=== PATIENT | female | born 1945 | race Hispanic/Latino ===

== ENCOUNTER 2016-11-28 22:35 | Observation (INO) | payer MEDICARE, OTHER ==
--- NOTE | 2016-11-28 22:56 | ED PDOC ---
Arrival/HPI - General Time Seen by Provider: 11/28/16 22:40 Historian: Patient - History of Present Illness Narrative History of Present Illness (Text): 11/28/16 22:58 Lucia Hernandez is a 71 year old female, with a history of COPD and hypertension, presents to the emergency department complaining of chest tightness associated with shortness of breath since earlier today. Patient reports that she was recently started on Lasix by PMD, Dr. Fry. She is also scheduled for an ultrasound of abdomen and lower extremity later tomorrow. States she used breathing treatments at home for minimal relief. Denies fever, chills, headache, dizziness, nausea, vomiting, diarrhea, urinary symptoms, or any other complaints at this time. PMD: Dr. 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 - Anesthesia Hx Anesthesia: Yes Hx Anesthesia Reactions: No Hx Malignant Hyperthermia: No Family/Social History - Physician Review Nursing Documentation Reviewed: Yes Family/Social History: No Known Family HX Smoking Status: Heavy Smoker > 10 Cigarettes Daily Hx Alcohol Use: No Hx Substance Use: No Allergies/Home Meds Allergies/Adverse Reactions: Allergies clarithromycin [From Biaxin] Allergy (Verified 11/28/16 23:10) ANAPHYLAXIS levofloxacin [From Levaquin] Allergy (Verified 11/28/16 23:10) ANAPHYLAXIS moxifloxacin HCl [From Avelox] Allergy (Verified 11/28/16 23:10) ANAPHYLAXIS Home Medications: Home Meds Medication Instructions Recorded Confirmed Albuterol/Ipratropium [Combivent 1 puff IH QID 08/08/16 11/28/16 Respimat] Citalopram [celeXA] 10 mg PO DAILY 08/08/16 11/28/16 Oxycodone HCl [Roxicodone] 15 mg PO 5XD 08/08/16 11/28/16 amLODIPine [Norvasc] 5 mg PO DAILY 08/08/16 11/28/16 Furosemide [Lasix] 20 mg PO DAILY 11/28/16 11/28/16 Review of Systems - Physician Review All systems were reviewed & negative as marked: Yes - Review of Systems Constitutional: Normal. absent: Fatigue, Fevers Respiratory: SOB. absent: Cough, Sputum Cardiovascular: Chest Pain (tightness ) Gastrointestinal: Normal. absent: Abdominal Pain, Diarrhea, Nausea, Vomiting Neurological: Normal. absent: Headache, Dizziness Psychiatric: Normal Physical Exam Vital Signs Reviewed: Yes Vital Signs Temp Pulse Resp BP Pulse Ox 11/29/16 04:27 80 18 144/79 97 11/29/16 03:12 18 11/29/16 03:00 76 18 140/74 95 11/29/16 01:00 98.5 F 80 16 138/74 95 11/28/16 23:12 97.8 F 92 H 16 142/79 97 Temperature: Afebrile Blood Pressure: Normal Pulse: Regular Respiratory Rate: Normal Appearance: Positive for: Well-Appearing, Non-Toxic, Comfortable Pain Distress: None Mental Status: Positive for: Alert and Oriented X 3 - Systems Exam Head: Present: Atraumatic, Normocephalic Pupils: Present: PERRL Extroacular Muscles: Present: EOMI Conjunctiva: Present: Normal Mouth: Present: Moist Mucous Membranes Respiratory/Chest: Present: Decreased Breath Sounds. No: Respiratory Distress, Accessory Muscle Use Cardiovascular: Present: Regular Rate and Rhythm, Normal S1, S2. No: Murmurs Abdomen: Present: Normal Bowel Sounds. No: Tenderness, Distention, Peritoneal Signs Back: Present: Normal Inspection. No: CVA Tenderness Upper Extremity: Present: Normal Inspection. No: Cyanosis, Edema Lower Extremity: Present: Normal Inspection. No: Edema Neurological: Present: GCS=15, CN II-XII Intact, Speech Normal Skin: Present: Warm, Dry, Normal Color. No: Rashes Psychiatric: Present: Alert, Oriented x 3, Normal Insight, Normal Concentration Medical Decision Making ED Course and Treatment: 11/28/16 23:05 Impression: A 71 year old female who presents to the emergency department complaining of shortness of breath and chest tightness since earlier today. Plan: -- EKG -- Chest X-ray -- oxycodone -- blood culture -- Duplex LE -- US abdomen -- Urinalysis -- Reassess and disposition Progress Notes: 11/29/16 01:49 EKG reviewed by me: NSR @ 100 bpm. Minimal voltage criteria for LVH. ST abnormality, possible digitalis effect. 11/29/16 01:51 Spoke with [employer] who informs a negative Doppler study. US abdomen results reviewed: Impression: No acute findings. Case discussed with Dr. Lockhart, who is aware and agrees with the plan to admit patient to telemetry. Accepts patient under her service. - Lab Interpretations Microbiology Results: Microbiology Results 11/28/16 23:40 Blood-Venous Blood Culture - Preliminary NO GROWTH AFTER 4 DAYS 11/28/16 23:15 Blood-Venous Blood Culture - Preliminary NO GROWTH AFTER 4 DAYS Lab Results: 11/28/16 23:40 11/28/16 23:40 Lab Results 11/28/16 23:40: WBC 6.6, RBC 4.23, Hgb 13.3, Hct 41.4, MCV 97.9, MCH 31.4, MCHC 32.1, RDW 15.1 H, Plt Count 279, MPV 8.9, Gran % 76.3 H, Lymph % (Auto) 16.4 L, [place] % (Auto) 6.7 H, Eos % (Auto) 0.3 L, Baso % (Auto) 0.3, Gran # 5.04, Lymph # 1.1 L, [place] # 0.4, Eos # 0.0, Baso # 0.02, PT 10.7, INR 0.99, pO2 41, VBG pH 7.33, VBG pCO2 63.0 H, VBG HCO3 33.2 H, VBG Total CO2 35.1 H, VBG O2 Sat (Calc) 76.4 H, VBG Base Excess 5.3 H, VBG Potassium 3.9, Glucose 76, Lactate 1.2, FiO2 21.0, Sodium 141.0, Potassium 3.9, Chloride 104.0, Carbon Dioxide 31, Anion Gap 12, BUN 15, Creatinine 0.5, Est GFR ( Amer) > 60, Est GFR (Non-Af Amer) > 60, Random Glucose 78, Calcium 9.2, Total Bilirubin 0.6, AST 31, ALT 17, Alkaline Phosphatase 92, Lactate Dehydrogenase 516, Total Creatine Kinase 61, Troponin I < 0.01, NT-Pro-B Natriuret Pep 150, Total Protein 7.2, Albumin 3.9, Globulin 3.3, Albumin/Globulin Ratio 1.2, Venous Blood Potassium 3.9 11/28/16 22:47: Urine Color Yellow, Urine Appearance Clear, Urine pH 8.0, Ur Specific [place] 1.015, Urine Protein Negative, Urine Glucose (UA) Negative, Urine Ketones Negative, Urine Blood Negative, Urine Nitrate Negative, Urine Bilirubin Negative, Urine Urobilinogen 0.2, Ur Leukocyte Esterase Negative I have reviewed the lab results: Yes - RAD Interpretation Narrative RAD Interpretations (Text): EXAM: US Abdomen Complete. FINDINGS: Liver: Normal echogenicity. No mass. No intrahepatic bile duct dilatation. Gallbladder: No gallstones. No wall thickening. No pericholecystic fluid. No sonographic Viramontes's sign. Common bile duct: No dilatation. No stones. Pancreas: Unremarkable as visualized. Kidneys: Normal echogenicity. No hydronephrosis. Spleen: No splenomegaly. Aorta: Not visualized. Inferior vena cava: Unremarkable. Free fluid: No significant free fluid. IMPRESSION: 1. No acute findings. 2. Non-acute findings are described above. Radiology Orders: 11/28/16 23:24 ABDOMEN COMPLETE [US] Stat 11/28/16 23:25 DUPLEX LOWER EXTRM VEIN BILAT [US] Stat 11/28/16 23:27 CHEST PORTABLE [RAD] Stat Cutlet Maker Pork: Radiologist - EKG Interpretation Interpreted by ED Physician: Yes Type: 12 lead EKG - Medication Orders Current Medication Orders: Discontinued Medications Acetaminophen (Tylenol 325mg Tab) 650 mg PO Q4H PRN PRN Reason: Fever >100.5 F Albuterol/Ipratropium (Duoneb 3 Mg/0.5 Mg (3 Ml) Ud) 3 ml IH Q4H PRN PRN Reason: Wheezing Stop: 11/29/16 07:34 Albuterol/Ipratropium (Duoneb 3 Mg/0.5 Mg (3 Ml) Ud) 3 ml IH [id number] [facility] Last Admin: 11/30/16 08:13 Dose: 3 ML Amlodipine Besylate (Norvasc) 5 mg PO DAILY [facility] Last Admin: 11/29/16 10:15 Dose: 5 MG MAR Pulse and Blood Pressure Document 11/29/16 10:15 RDS (Rec: 11/29/16 10:15 RDS [id number]) Pulse Pulse Rate (60-90) 84 Blood Pressure Blood Pressure (100/60-150/90) 138/75 Amlodipine Besylate (Norvasc) 10 mg PO DAILY [facility] Last Admin: 12/01/16 10:47 Dose: 10 MG MAR Pulse and Blood Pressure Document 12/01/16 10:47 [facility] (Rec: 12/01/16 10:48 [id number] Blood Pressure Blood Pressure (100/60-150/90) 161/99 Amlodipine Besylate (Norvasc) 5 mg PO ONCE ONE Stop: 11/30/16 12:48 Amlodipine Besylate (Norvasc) 5 mg PO ONCE ONE Stop: 11/29/16 12:53 Last Admin: 11/29/16 13:02 Dose: 5 MG MAR Pulse and Blood Pressure Document 11/29/16 13:02 SG (Rec: 11/29/16 13:03 SG [id number]) Pulse Pulse Rate (60-90) 91 Blood Pressure Blood Pressure (100/60-150/90) 155/90 Aspirin (Aspirin Chewable) 81 mg PO DAILY [facility] Last Admin: 12/01/16 10:47 Dose: 81 MG Citalopram Hydrobromide (Celexa) 10 mg PO DAILY [facility] Last Admin: 12/01/16 10:47 Dose: 10 MG Clonazepam (Klonopin) 0.5 mg PO BID PRN; Protocol PRN Reason: Anxiety Fentanyl (Fentanyl) Confirm Administered Dose 100 mcg .ROUTE .STK-MED ONE Stop: 11/30/16 10:54 Last Admin: 11/30/16 13:15 Dose: Furosemide (Lasix) 40 mg IVP DAILY [facility] Last Admin: 12/01/16 10:48 Dose: 40 MG MAR Blood Pressure Document 12/01/16 10:48 [facility] (Rec: 12/01/16 10:48 [id number] Blood Pressure Blood Pressure (100/60-150/90) 161/99 IVP Administration Document 12/01/16 10:48 [facility] (Rec: 12/01/16 10:48 [id number] Charges for Administration # of IVP Administrations 1 Heparin Sodium (Porcine) (Heparin) Confirm Administered Dose 10,000 units .ROUTE .STK-MED ONE Stop: 11/30/16 10:54 Last Admin: 11/30/16 13:15 Dose: Heparin Sodium (Porcine) (Heparin 1000 Units/500 Ml Ns) Confirm Administered Dose 1,500 mls @ IV .STK-MED ONE Stop: 11/30/16 10:55 Last Admin: 11/30/16 13:16 Dose: Iodixanol (Visipaque 320 Mg/Ml 100 Ml) Confirm Administered Dose 100 ml IV .STK- MED ONE Stop: 11/30/16 10:55 Last Admin: 11/30/16 13:17 Dose: Iodixanol (Visipaque 320 Mg/Ml 200 Ml) Confirm Administered Dose 200 ml IV .STK- MED ONE Stop: 11/30/16 10:55 Last Admin: 11/30/16 13:17 Dose: Iohexol (Omnipaque 350mg/Ml 50 Ml) Confirm Administered Dose 50 ml .ROUTE .STK- MED ONE Stop: 11/30/16 10:55 Last Admin: 11/30/16 13:16 Dose: Levalbuterol HCl (Xopenex) 0.63 mg IH [id number] PRN PRN Reason: Shortness of Breath Last Admin: 12/01/16 11:23 Dose: 0.63 MG Lidocaine HCl (Lidocaine 2% 20ml Vial) Confirm Administered Dose 20 ml .ROUTE .STK-MED ONE Stop: 11/30/16 10:54 Last Admin: 11/30/16 13:16 Dose: Methylprednisolone (Solu-Medrol) 40 mg IV Q12 JAMES Last Admin: 11/30/16 09:48 Dose: 40 MG eMAR Start Stop Document 11/30/16 09:48 [facility] (Rec: 11/30/16 09:48 [facility] [id number]) Intravenous Solution Start Date 11/30/16 Start Time 09:48 End Date 11/30/16 End time 09:48 Total Infusion Time 0 Methylprednisolone (Solu-Medrol) 20 mg IV Q12 JAMES Last Admin: 12/01/16 10:49 Dose: 20 MG eMAR Start Stop Document 12/01/16 10:49 DM (Rec: 12/01/16 10:49 [facility] [id number]) Intravenous Solution Start Date 12/01/16 Start Time 10:49 End Date 12/01/16 End time 10:49 Total Infusion Time 0 Midazolam HCl (Versed Inj) Confirm Administered Dose 2 mg .ROUTE .STK-MED ONE Stop: 11/30/16 10:54 Last Admin: 11/30/16 13:17 Dose: Oxycodone HCl (Oxycodone Immediate Release Tab) 15 mg PO STAT STA Stop: 11/29/16 01:51 Last Admin: 11/29/16 02:08 Dose: 15 MG Oxycodone HCl (Oxycodone Immediate Release Tab) 15 mg PO Q6H PRN PRN Reason: Pain, moderate (4-7) Oxycodone HCl (Oxycodone Immediate Release Tab) 15 mg PO Q6H PRN PRN Reason: Pain, moderate (4-7) Last Admin: 12/01/16 12:15 Dose: 15 MG Oxycodone/Acetaminophen (Percocet 5/325 Mg Tab) 1 tab PO Q6H PRN PRN Reason: Pain, moderate (4-7) Stop: 12/02/16 08:25 Last Admin: 11/29/16 08:50 Dose: 1 TAB MAR Pain Assessment Document 11/29/16 08:50 RDS (Rec: 11/29/16 08:52 RDS [facility] [id number] Pain Reassessment Is this a pain reassessment? No Sleep Is patient sleeping during reassessment? No Presence of Pain Presence of Pain Yes Pain Scale Used Pain Scale Used Numeric Location Pain Location Body Site Generalized Description Description Chronic Intensity of Pain at present 10 Acceptable Level of Pain 5 Pain Behavior Facial Grimacing Aggravating Factors Changing Position Exercise/Activity Alleviating Factors/Management Medication Techniques Alleviating Factors Medication Verapamil HCl (Verapamil Inj) Confirm Administered Dose 5 mg IVP .STK-MED ONE Stop: 11/30/16 10:54 Last Admin: 11/30/16 13:16 Dose: - Scribe Statement The provider has reviewed the documentation as recorded by the Salas Ambrocio Provider Attestation: All medical record entries made by the Salas were at my direction and personally dictated by me. I have reviewed the chart and agree that the record accurately reflects my personal performance of the history, physical exam, medical decision making, and the department course for this patient. I have also personally directed, reviewed, and agree with the discharge instructions and disposition. Disposition/Present on Arrival - Present on Arrival Any Indicators Present on Arrival: No History of DVT/PE: No History of Uncontrolled Diabetes: No Urinary Catheter: No History Surgical Site Infection Following: Obstetrical/Gynecological Surgery - Disposition Have Diagnosis and Disposition been Completed?: Yes Diagnosis: Chest pain, Chronic obstructive pulmonary disease Disposition: HOSPITALIZED Disposition Time: 02:00 Condition: GOOD
[2016-11-29 00:08] LABS: ADD MANUAL DIFF? NO
[2016-11-29 00:18] LABS: URINE BILIRUBIN NEGATIVE (NEGATIVE); URINE BLOOD NEGATIVE (NEGATIVE); URINE GLUCOSE (UA) NEGATIVE (NEGATIVE); URINE KETONE NEGATIVE (NEGATIVE); URINE LEUKOCYTE ESTERASE NEGATIVE Leu/uL (NEGATIVE); URINE PROTEIN NEGATIVE mg/dL (<30 mg/dL); URINE UROBILINOGEN 0.2 E.U./dL (<1 E.U./dL)
[2016-11-29 00:19] LABS: INR 0.99 (0.93-1.08)
[2016-11-29 00:20] LABS: VENOUS BLOOD GAS BASE EXCESS 5.3 mmol/L (0.0-2.0); VENOUS BLOOD PH 7.33 (7.32-7.43)
[2016-11-29 00:23] LABS: ALB/GLOB RATIO 1.2 (1.1-1.8); ALKALINE PHOSPHATASE 92 U/L (38-133); ALT/SGPT 17 U/L (7-56); AST/SGOT 31 U/L (15-39); BILIRUBIN,TOTAL 0.6 mg/dL (0.2-1.3); BLOOD UREA NITROGEN 15 mg/dL (7-21); CALCIUM 9.2 mg/dL (8.4-10.5); CARBON DIOXIDE 31 mmol/L (21-33); CHLORIDE 100 mmol/L (98-107); GFR AFRICAN-AMERICAN > 60; GLUCOSE,RANDOM 78 mg/dL (70-110); POTASSIUM 3.9 mmol/L (3.6-5.0); SODIUM 139 mmol/L (132-148); TOTAL PROTEIN 7.2 g/dL (5.8-8.3)
[2016-11-29 00:23] LABS: URINE APPEARANCE CLEAR (CLEAR); URINE COLOR YELLOW (YELLOW)
[2016-11-29 00:34] LABS: BASO # 0.02 K/mm3 (0.0-2.0); BASO % 0.3 % (0.0-3.0); EOS % 0.3 % (1.5-5.0); GRAN # 5.04 (1.4-6.5); GRAN % 76.3 % (50.0-68.0); HEMATOCRIT 41.4 % (36.0-48.0); LYMPH # 1.1 (1.2-3.4); LYMPH % 16.4 % (22.0-35.0); MEAN CELL VOLUME 97.9 fL (80.0-105.0); MEAN CORPUSCULAR HEMOGLOBIN 31.4 pg (25.0-35.0); MEAN CORPUSCULAR HGB CONC 32.1 g/dl (31.0-37.0); MEAN PLATELET VOLUME 8.9 fl (7.0-11.0); MONO # 0.4 (0.1-0.6); MONO % 6.7 % (1.0-6.0); PLATELET COUNT 279 10^3/uL (120.0-450.0); RED CELL DISTRIBUTION WIDTH 15.1 % (11.5-14.5); WHITE BLOOD COUNT 6.6 10^3/ul (4.5-11.0)
[2016-11-29 00:41] LABS: TROPONIN I < 0.01 ng/mL
--- NOTE | 2016-11-29 01:01 | US ---
EXAM: US Abdomen Complete. CLINICAL HISTORY: 71 years old, female; Pain; Abdominal pain; Generalized; Additional info: Abd pain TECHNIQUE: Real-time ultrasound of the abdomen (complete) with image documentation. COMPARISON: No relevant prior studies available. FINDINGS: Liver: Normal echogenicity. No mass. No intrahepatic bile duct dilatation. Gallbladder: No gallstones. No wall thickening. No pericholecystic fluid. No sonographic Viramontes's sign. Common bile duct: No dilatation. No stones. Pancreas: Unremarkable as visualized. Kidneys: Normal echogenicity. No hydronephrosis. Spleen: No splenomegaly. Aorta: Not visualized. Inferior vena cava: Unremarkable. Free fluid: No significant free fluid. IMPRESSION: 1.No acute findings. 2.Non-acute findings are described above.
[2016-11-29] MEDS ORDERED: oxyCODONE 15 mg Immediate Release Tab PO STA (01:50)
[2016-11-29] MEDS ORDERED: Albuterol-Ipratrop 3 mg / 0.5 (3 ml) UD IH PRN (03:33)
[2016-11-29 05:53] VITALS: BMI 21.2
[2016-11-29] MEDS ORDERED: Oxycodone/Acetaminophen 5/325 mg Tab PO PRN (08:24)
--- NOTE | 2016-11-29 08:39 | RAD ---
HISTORY: cp COMPARISON: 08/08/2016 FINDINGS: LUNGS: No active pulmonary disease. Hyperlucency that upper lung zone possible emphysematous changes similar-appearing. PLEURA: No significant pleural effusion identified, no pneumothorax apparent. CARDIOVASCULAR: Normal. OSSEOUS STRUCTURES: Reversed S-shaped thoracolumbar scoliosis VISUALIZED UPPER ABDOMEN: Normal. OTHER FINDINGS: EKG leads in place IMPRESSION: No active disease.
[2016-11-29] MEDS ORDERED: oxyCODONE 15 mg Immediate Release Tab PO PRN (09:02)
--- NOTE | 2016-11-29 09:03 | CARD ---
APPROVED REPORT EKG Measurement Heart [id number] <Conclusion> Normal sinus rhythm Minimal voltage criteria for LVH, may be normal variant ST abnormality, possible digitalis effect Abnormal ECG
[2016-11-29] MEDS ORDERED: oxyCODONE 15 mg Immediate Release Tab PO SCH (12:15)
[2016-11-29] MEDS: MethylPREDNISolone 40 mg Vial IV SCH ×2 (12:53→21:26)
--- NOTE | 2016-11-29 12:56 | HP ---
HISTORY OF PRESENT ILLNESS: The patient is a 71-year-old, states she was having some chest tightness and shortness of breath going on for the last 2 days, got worse last night, so she told her daughter who brought her to the Emergency Room. Denies any fever or chills. Cough was nonproductive. Compl ained of having chest pressure. No diaphoresis, no weakness, no numbness, no nausea or vomiting. PAST MEDICAL HISTORY: Significant for hypertension, COPD, lumbosacral radiculopathy. PAST SURGICAL HISTORY: Significant for hysterectomy and ear surgery that she had in the remote past. ALLERGIES: SHE IS ALLERGIC TO BIAXIN, LEVAQUIN, AVELOX. MEDICATIONS AT HOME: She is on oxycodone 30 mg 5 times a day, Celexa 10 mg daily, amlodipine 5 mg da ralph, she is on Combivent. SOCIAL HISTORY: She lives with her daughter who lives upstairs. She is a heavy smoker. She quit sm oking since her last admission in August. REVIEW OF SYSTEMS: She states her chest discomfort is better than yesterday, and she has less chest pressure and she seems to be breathing better. PHYSICAL EXAMINATION: GENERAL: She is awake and alert, communicative. VITAL SIGNS: She is afebrile, pulse 77, respirations 18, blood pressure 138/75. LUNGS: Bilateral fair airflow, no rhonchi or crackle. HEART: S1, S2 audible. No murmur. ABDOMEN: Soft, nontender, no rebound, no guarding. NEUROLOGIC: The patient is awake and alert, communicative. LABORATORY DATA: WBC 6.6, hemoglobin 13, hematocrit 41, platelets 279. PT 10.7, INR 0.99. Chemistr y: Sodium 139, potassium 3.9, chloride 100, CO2 31, BUN 15, creatinine 0.5, blood sugar of 78. LFTs are within normal limits. Two sets of cardiac enzymes are negative. Urinalysis is unremarkable. A bdominal ultrasound is negative. EKG shows nonspecific changes. ASSESSMENT: 1. Chronic obstructive pulmonary disease exacerbation. 2. Bronchospasm. 3. Chronic degenerative disk disease with chronic low back pain. 4. Depression. 5. Hypertension. PLAN: We will start her on small dose of steroids. Renew her usual medication including Celexa and oxycodone. We will continue her on nebulizer treatment, aspirin 81 daily. Out of bed to chair. Cody falk reevaluate patient in a.m. If she seems to be improving, make discharge plan soon. Sandra Lockhart MD cc: [phone] TT: 11/29/2016 12:55:28 opal
--- NOTE | 2016-11-29 13:55 | US ---
HISTORY: Leg pain and swelling. Evaluate for DVT PHYSICIAN(S): Rhys Noble MD. TECHNIQUE: Duplex sonography and color-flow Doppler with graded compression were used to evaluate the deep venous systems of both lower extremities. FINDINGS: The visualized deep venous systems of both lower extremities are sonographically normal and compressible. Normal wave forms and augmentation are seen. There is no sonographic evidence for deep venous thrombosis in the visualized segments of both lower extremities. IMPRESSION: No sonographic evidence for deep venous thrombosis in the visualized segments of both lower extremities.
[2016-11-29] MEDS: Albuterol-Ipratrop 3 mg / 0.5 (3 ml) UD IH SCH ×2 (14:03→21:00)
[2016-11-29] MEDS: oxyCODONE 15 mg Immediate Release Tab PO PRN ×2 (15:22→21:26)
[2016-11-30 00:19] VITALS: O2SAT 95
[2016-11-30] MEDS: Albuterol-Ipratrop 3 mg / 0.5 (3 ml) UD IH SCH ×2 (02:30→08:13)
[2016-11-30] MEDS: oxyCODONE 15 mg Immediate Release Tab PO PRN ×4 (03:45→23:19)
[2016-11-30] MEDS: MethylPREDNISolone 40 mg Vial IV SCH ×3 (09:48→21:23)
[2016-11-30] MEDS ORDERED: Lidocaine 2% Inj (20ml) ONE (10:53)
[2016-11-30] MEDS ORDERED: Midazolam 2 MG/2 ML VIAL ONE (10:53)
[2016-11-30] MEDS ORDERED: Iodixanol 320 MG/ML 200 ML BOTTLE IV ONE (10:54)
[2016-11-30] MEDS ORDERED: Iodixanol 320 MG/ML 100 ML BOTTLE IV ONE (10:54)
[2016-11-30] MEDS ORDERED: Heparin 0 ML IV ONE (10:54)
[2016-11-30] MEDS ORDERED: Iohexol 350mgl/ml 50 ML ONE (10:54)
[2016-11-30] MEDS ORDERED: Levalbuterol 0.63 MG/3 ML Inhal Soln UD IH PRN (11:28)
--- NOTE | 2016-11-30 12:31 | PN ---
DATE: 11/30/2016 SUBJECTIVE: The patient is a 71-year-old, seen and examined, sitting in chair, very nervous, shaking , has obvious significant tremor in both hands. She states she did not sleep last night. Has subjec tive feeling of shortness of breath. PHYSICAL EXAMINATION: GENERAL: She looks anxious. Mild shortness of breath. VITAL SIGNS: She is afebrile, pulse 86, respirations 20, blood pressure 127/72. LUNGS: Bilateral few expiratory rhonchi. HEART: S1, S2 audible. ABDOMEN: Soft, nontender, no rebound, no guarding. NEUROLOGIC: The patient is awake and alert and communicative. EXTREMITIES: Bilateral legs, no edema. LABORATORY EXAMINATION: There is no new lab available today. Her x-ray chest, no active disease. A bdominal sonogram is unremarkable. Bilateral leg Doppler is negative. ASSESSMENT: 1. Chronic obstructive pulmonary disease exacerbation. 2. Anxiety disorder. 3. Degenerative disk disease. 4. Hypertension. 5. Hyperlipidemia. PLAN: Will cut down her steroids, add small dose of anxiolytic, change her DuoNeb to Xopenex and adalberto lgesic as needed. We will reevaluate the patient in a.m. If she improves, will make discharge plan i n a.m. Sandra Lockhart MD cc: [phone] TT: 11/30/2016 12:30:49 Confirmation # [id number] Dictation # [id number] opal
[2016-11-30] MEDS ORDERED: MethylPREDNISolone 40 mg Vial IVP SCH (22:00)
[2016-12-01] MEDS: oxyCODONE 15 mg Immediate Release Tab PO PRN ×2 (05:25→12:15)
[2016-12-01 08:29] VITALS: PULSE 74; RESP 20; TEMP 98.4
[2016-12-01] MEDS: MethylPREDNISolone 40 mg Vial IV SCH (10:49)
[2016-12-01 10:51] VITALS: BP 161/99
--- NOTE | 2016-12-01 21:38 | DS ---
The patient is a 71-year-old, seen and examined, sitting in chair, comfortable. Mild shortness of br eath, but much better than before. PHYSICAL EXAMINATION: VITAL SIGNS: She is afebrile, pulse 74, respirations 20, blood pressure 123/71. LUNGS: Bilateral diffusely decreased breath sounds. HEART: S1, S2 audible. ABDOMEN: Soft, nontender, no rebound, no guarding. NEUROLOGIC: The patient is awake and alert, communicative, ambulatory. ASSESSMENT: 1. Status post chronic obstructive pulmonary disease exacerbation. 2. Asthmatic bronchitis, improved. 3. Anxiety disorder. 4. Degenerative disk disease, on chronic narcotics. 5. Hyperlipidemia. PLAN: The patient is being discharged home. She will resume her medications including Norvasc 5 mg daily, oxycodone 15 mg 5 times a day, Celexa 10 mg daily. She has nebulizer at home. Will resume th at, and will give her prednisone 20 mg for 3 days, then 10 mg for 4 days, and she will follow up with her PMD. Sandra Lockhart MD cc: [phone] TT: 12/01/2016 21:37:21 oh
== END 2016-12-01 16:18 | disposition home or self-care (01) ==
LOC: ED 22:35 → ERH 11-29 01:38 → 2RNO 11-29 05:11 → 5RSO 11-30 17:32
PROVIDERS: ADMIT Internal Medicine; ATTEND Internal Medicine
DX: J44.1 Chronic obstructive pulmonary disease with (acute) exacerbation (principal); J45.909 Unspecified asthma, uncomplicated; I10 Essential (primary) hypertension; M51.16 Intervertebral disc disorders with radiculopathy, lumbar region; E78.5 Hyperlipidemia, unspecified; F41.9 Anxiety disorder, unspecified; F32.9 Major depressive disorder, single episode, unspecified
CPT/HCPCS: 36415; 71010; 76700; 80053; 81003; 82550; 82803; 83615; 83880; 84484; 85025; 85610; 87040; 93005; 93970; 94640; 94760; 96374; 96375; 96376; 97116; 97161; 99285; G0378; G8978; G8979; G8980; J1940; J2920

== ENCOUNTER 2017-01-26 17:11 | Emergency (ER) | payer MEDICARE ==
[2017-01-26 17:38] VITALS: RESP 18; TEMP 97.8; O2SAT 96; BMI 21.9
[2017-01-26] MEDS ORDERED: Albuterol-Ipratrop 3 mg / 0.5 (3 ml) UD IH STA ×3 (17:42→17:43)
--- NOTE | 2017-01-26 17:44 | ED PDOC ---
Arrival/HPI - General Time Seen by Provider: 01/26/17 17:42 Historian: Patient - History of Present Illness Narrative History of Present Illness (Text): 01/26/17 17:42 71 year old female whose past medical history includes COPD presents to the emergency department with shortness of breath since yesterday, worsening today. Patient states this feels like her COPD, with last admission in November 2016. Denies cough, fever, runny nose, or other symptoms. 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 - Anesthesia Hx Anesthesia: Yes Hx Anesthesia Reactions: No Hx Malignant Hyperthermia: No Family/Social History - Physician Review Nursing Documentation Reviewed: Yes Family/Social History: Unknown Family HX Smoking Status: Heavy Smoker > 10 Cigarettes Daily Hx Alcohol Use: No Hx Substance Use: No Allergies/Home Meds Allergies/Adverse Reactions: Allergies clarithromycin [From Biaxin] Allergy (Verified 11/28/16 23:10) ANAPHYLAXIS levofloxacin [From Levaquin] Allergy (Verified 11/28/16 23:10) ANAPHYLAXIS moxifloxacin HCl [From Avelox] Allergy (Verified 11/28/16 23:10) ANAPHYLAXIS Home Medications: Home Meds Medication Instructions Recorded Confirmed Albuterol/Ipratropium [Combivent 1 puff IH QID 08/08/16 11/28/16 Respimat] Citalopram [celeXA] 10 mg PO DAILY 08/08/16 11/28/16 Oxycodone HCl [Roxicodone] 15 mg PO 5XD 08/08/16 11/28/16 amLODIPine [Norvasc] 5 mg PO DAILY 08/08/16 11/28/16 Furosemide [Lasix] 20 mg PO DAILY 11/28/16 11/28/16 Review of Systems - Physician Review All systems were reviewed & negative as marked: Yes - Review of Systems Constitutional: absent: Fevers ENT: absent: Rhinorrhea Respiratory: SOB. absent: Cough Physical Exam - Physical Exam Narrative Physical Exam (Text): Constitutional: No acute distress. Head: Normocephalic. Atraumatic. Eyes: PERRL. ENT: Moist mucous membranes. Neck: Supple. Cardiovascular: Regular rate. Chest: No tenderness. Respiratory: Clear to auscultation bilaterally. GI: Soft. Nontender. Nondistended. Back: No CVA tenderness. Musculoskeletal: No tenderness or swelling of extremities. Skin: No rash. Neurologic: Alert, no focal deficit. Vital Signs Reviewed: Yes Vital Signs Temp Pulse Resp BP Pulse Ox 01/26/17 19:02 79 18 148/89 96 01/26/17 17:37 97.8 F 84 18 157/95 H 96 01/26/17 17:36 97.8 F 84 18 157/95 H 98 Temperature: Afebrile Blood Pressure: Normal Pulse: Regular Respiratory Rate: Normal Appearance: Positive for: Well-Appearing, Non-Toxic, Comfortable Pain Distress: None Mental Status: Positive for: Alert and Oriented X 3 Medical Decision Making ED Course and Treatment: Impression: 71 year old female whose past medical history includes COPD presents to the emergency department with shortness of breath since yesterday, worsening today. Differential Diagnosis included but are not limited to: COPD exacerbation Plan: -- Chest X-ray -- Duoneb, Solumedrol -- Labs -- Reassess and disposition Prior Visits: Notes and results from previous visits were reviewed. Patient last seen in the ED on 11/28/16 for chest pain and admitted for COPD, chest pain. Progress Notes: Chest X-ray Sugar Laboratory Assistant: Dr. Jalloh, Solomon PRESTON IMPRESSION: No active disease Patient in no acute distress. Pulse oximetry normal. Patient comfortable for discharge, f/u PMD, return to ER for worsening dyspnea. - Lab Interpretations Lab Results: 01/26/17 18:15 01/26/17 18:58 Lab Results 01/26/17 18:58: Sodium 141, Potassium 3.7, Chloride 102, Carbon Dioxide 31, Anion Gap 12, BUN 15, Creatinine 0.5, Est GFR ( Amer) > 60, Est GFR (Non- Af Amer) > 60, Random Glucose 85, Calcium 9.4, Total Bilirubin 0.4, AST 31, ALT 38, Alkaline Phosphatase 86, Total Protein 7.2, Albumin 4.3, Globulin 2.9, Albumin/Globulin Ratio 1.5 01/26/17 18:15: WBC 6.0, RBC 4.95, Hgb 15.5, Hct 46.2, MCV 93.3, MCH 31.3, MCHC 33.5, RDW 13.9, Plt Count 186, MPV 11.1 H, Gran % 76.2 H, Lymph % (Auto) 16.6 L , Hendry % (Auto) 6.6 H, Eos % (Auto) 0.3 L, Baso % (Auto) 0.3, Gran # 4.60, Lymph # 1.0 L, Hendry # 0.4, Eos # 0.0, Baso # 0.02 - RAD Interpretation Radiology Orders: 01/26/17 17:42 CHEST PORTABLE [RAD] Stat - Medication Orders Current Medication Orders: Discontinued Medications Albuterol/Ipratropium (Duoneb 3 Mg/0.5 Mg (3 Ml) Ud) 3 ml IH Q15M STA Stop: 01/26/17 17:43 Last Admin: 01/26/17 17:59 Dose: 3 ml Albuterol/Ipratropium (Duoneb 3 Mg/0.5 Mg (3 Ml) Ud) 3 ml IH STAT STA Stop: 01/26/17 17:44 Last Admin: 01/26/17 17:58 Dose: 3 ml Albuterol/Ipratropium (Duoneb 3 Mg/0.5 Mg (3 Ml) Ud) 3 ml IH STAT STA Stop: 01/26/17 17:44 Last Admin: 01/26/17 17:59 Dose: 3 ml Methylprednisolone (Solu-Medrol) 125 mg IVP STAT STA Stop: 01/26/17 17:43 Last Admin: 01/26/17 18:07 Dose: 125 mg - Scribe Statement The provider has reviewed the documentation as recorded by the Salas Reed Provider Scribe Attestation: All medical record entries made by the Salas were at my direction and personally dictated by me. I have reviewed the chart and agree that the record accurately reflects my personal performance of the history, physical exam, medical decision making, and the department course for this patient. I have also personally directed, reviewed, and agree with the discharge instructions and disposition. Disposition/Present on Arrival - Present on Arrival Any Indicators Present on Arrival: No History of DVT/PE: No History of Uncontrolled Diabetes: No Urinary Catheter: No History Surgical Site Infection Followin - Disposition Have Diagnosis and Disposition been Completed?: Yes Diagnosis: COPD exacerbation Disposition: HOME/ ROUTINE Disposition Time: 20:00 Patient Plan: Discharge Condition: STABLE Discharge Instructions (ExitCare): COPD (Chronic Obstructive Pulmonary Disease ) (ED) Prescriptions: Prednisone [Deltasone] 3 tab PO DAILY #12 tablet
--- NOTE | 2017-01-26 18:08 | RAD ---
HISTORY: Dyspnea. Portable 17:55. COMPARISON: No prior. FINDINGS: LUNGS: No active pulmonary disease. PLEURA: No significant pleural effusion identified, no pneumothorax apparent. CARDIOVASCULAR: Normal. OSSEOUS STRUCTURES: No significant abnormalities. VISUALIZED UPPER ABDOMEN: Normal. OTHER FINDINGS: None. IMPRESSION: No active disease.
[2017-01-26 18:34] LABS: ADD MANUAL DIFF? NO
[2017-01-26 18:39] LABS: BASO # 0.02 K/mm3 (0.0-2.0); BASO % 0.3 % (0.0-3.0); EOS % 0.3 % (1.5-5.0); GRAN % 76.2 % (50.0-68.0); HEMATOCRIT 46.2 % (36.0-48.0); LYMPH % 16.6 % (22.0-35.0); MEAN CELL VOLUME 93.3 fL (80.0-105.0); MEAN CORPUSCULAR HEMOGLOBIN 31.3 pg (25.0-35.0); MEAN CORPUSCULAR HGB CONC 33.5 g/dl (31.0-37.0); MEAN PLATELET VOLUME 11.1 fl (7.0-11.0); MONO # 0.4 (0.1-0.6); MONO % 6.6 % (1.0-6.0); PLATELET COUNT 186 10^3/uL (120.0-450.0); RED CELL DISTRIBUTION WIDTH 13.9 % (11.5-14.5)
[2017-01-26 19:29] LABS: ALB/GLOB RATIO 1.5 (1.1-1.8); ALKALINE PHOSPHATASE 86 U/L (38-133); ALT/SGPT 38 U/L (7-56); AST/SGOT 31 U/L (15-39); BILIRUBIN,TOTAL 0.4 mg/dL (0.2-1.3); BLOOD UREA NITROGEN 15 mg/dL (7-21); CALCIUM 9.4 mg/dL (8.4-10.5); CARBON DIOXIDE 31 mmol/L (21-33); CHLORIDE 102 mmol/L (95-110); GFR AFRICAN-AMERICAN > 60; GLUCOSE,RANDOM 85 mg/dL (70-110); POTASSIUM 3.7 mmol/L (3.6-5.0); SODIUM 141 mmol/L (132-148); TOTAL PROTEIN 7.2 g/dL (5.8-8.3)
[2017-01-26 20:18] VITALS: BP 145/79; PULSE 75
--- NOTE | 2017-01-27 14:11 | CARD ---
APPROVED REPORT EKG Measurement Heart [id number] <Conclusion> Normal sinus rhythm Normal ECG
== END 2017-01-26 20:36 | disposition home or self-care (01) ==
LOC: ED 17:11
DX: J44.1 Chronic obstructive pulmonary disease with (acute) exacerbation (principal); F17.210 Nicotine dependence, cigarettes, uncomplicated
CPT/HCPCS: 71010; 80053; 85025; 93005; 96374; 99284; J2930